=== PATIENT | female | born 1955 | race Caucasian/White ===

== ENCOUNTER → 2016-08-20 | Outpatient (CLI) | payer BC ==
[~2016-08-20] MED LIST: CITA40TA5 PO; CRESTOR10 MG PO; GEMF600T3 PO; NAPR220C4 PO; OMEP20CA9 PO; ZOLP10TA PO
--- NOTE | 2016-08-20 11:28 | KCIC ---
PROCEDURE CT chest without contrast. HISTORY Cough, chills, achiness, sores throat. Smoker's cough. TECHNIQUE Helical CT imaging of the chest is performed without IV contrast. PQRS: One or more the following individualized dose reduction techniques were utilized for the study: 1. Automated exposure control. 2. Adjustment of the mA and/or kV according to patient size. 3. Use of iterative reconstruction technique. COMPARISON CT Calcium score, July 06, 2015. FINDINGS Benign-appearing bilateral axillary lymph nodes. Subcentimeter mediastinal lymph nodes. Limited evaluation of the nicolas without IV contrast. Great vessels are normal caliber. Cardiac size normal, no pericardial effusion. No pleural effusion. The central airways are patent. There is minimal upper lobe centrilobular emphysema. There is a 4 millimeter nodule in the right upper lobe, image 28. Nodular opacity along the right major fissure is stable allowing for respiratory motion artifact on today's exam, image 35. 4 millimeter nodule left upper lobe, image 22. Nodular opacity along the left major fissure is also stable, image 31. Finding is probably an intrapulmonary lymph node. Linear scarring or atelectasis in the inferior lingula is unchanged. There are mild ground-glass opacities in the anterior upper lobes bilaterally. Punctate nonobstructing calculus upper pole of left kidney versus vascular calcification. Degenerative endplate spurring in the thoracic spine. IMPRESSION 1. 4 millimeter noncalcified nodule in the right upper lobe and in the left upper lobe. This area of the lungs not imaged on prior study. Recommend noncontrast CT chest follow up in 12 months to document stability. 2. Probable intrapulmonary lymph nodes bilaterally are stable. 3. Minimal upper lobe centrilobular emphysema. 4. Mild ground-glass opacities in the bilateral anterior upper lobes. Considerations include atelectasis or pneumonitis or alveolar edema. Electronically signed by: Monster Prela MD (Aug 20, 2016 11:27:13)
== END | disposition home or self-care (01) ==
LOC: KCIC CT 10:43
PROVIDERS: ATTEND Nurse Practitioner Family
DX: R05 Cough (principal); R68.83 Chills (without fever); J02.9 Acute pharyngitis, unspecified; J43.2 Centrilobular emphysema; J98.11 Atelectasis; R60.9 Edema, unspecified; R52 Pain, unspecified
CPT/HCPCS: 71250

== ENCOUNTER → 2017-06-23 | Outpatient (CLI) | payer BC ==
--- NOTE | 2017-06-23 16:53 | KCIC ---
Bilateral digital screening mammogram History: Annual screening mammography Comparison: June 17, 2016 and June 04, 2007 Findings: Breast Tissue Density B :There are scattered areas of fibroglandular density. Bilateral digital mammogram images are obtained with CAD. No suspicious masses, architectural distortion, or grouped microcalcifications are identified. Impression: Negative exam. Recommend screening mammogram in one year. BI-RADS Category 1: Negative. PQRS compliance statement - Patient information was entered into a reminder system with a target due date for the next mammogram. Electronically signed by: Desi Thomas MD (06/23/2017 4:50 PM) [id number]
== END | disposition home or self-care (01) ==
LOC: KCIC MAMMO 15:24
PROVIDERS: ATTEND Family Medicine
DX: Z12.31 Encounter for screening mammogram for malignant neoplasm of breast (principal)
CPT/HCPCS: G0202; 77067

== ENCOUNTER → 2017-10-02 | Outpatient (CLI) | payer BC | END | disposition home or self-care (01) | LOC: KCIC 09:30 | DX: R05 Cough (principal); Z87.891 Personal history of nicotine dependence | CPT/HCPCS: 71046 ==

== ENCOUNTER → 2019-04-12 | Outpatient (CLI) | payer BC ==
[~2019-04-12] MED LIST changes: -GEMF600T3 PO; +GEMF600T8 PO; +OMEP20CA10 PO; -OMEP20CA9 PO
--- NOTE | 2019-04-12 17:23 | KCIC ---
EXAM: Bilateral screening mammogram. HISTORY: 63-year-old female presents for screening mammography. TECHNIQUE: Full-field digital craniocaudal and mediolateral oblique views of both breasts are obtained for evaluation. Computer aided detection with [employer] software version 9.3 was applied. COMPARISON: 06/23/2017 and 05/11/2015 and 06/11/2013 BREAST PARENCHYMAL DENSITY: Level B - Scattered fibroglandular densities. FINDINGS: There has been minimal interval increase in a circumscribed nodule within the central aspect of the left breast compared to studies dating to 05/11/2015. The minimal change management coordinator a 4 year interval favors benignity. However, this is significantly increased compared to a study dated 06/11/2013 and there is no evidence of prior sonographic assessment of this lesion there is an additional small circumscribed nodule within the 9:00 position of the right breast which is stable compared to multiple studies. There is no suspicious calcifications or distortion within either breast. IMPRESSION: BI-RADS Category 0: Additional imaging needed. RECOMMENDATION: Further evaluation with a left breast sonogram targeted to a small nodular density within the central breast is recommended to confirm benignity. If your mammogram demonstrates that you have dense breast tissue, which could hide abnormalities, and if you have other risk factors for breast cancer that have been identified, you might benefit from supplemental screening tests that may be suggested by your ordering physician. Dense breast tissue, in and of itself, is a relatively common condition. This information is not provided to cause undue concern, but rather to raise your awareness and to promote discussion with your physician regarding the presence of other risk factors, in addition to dense breast tissue. A report of your mammography results will be sent to you and your physician. You should contact your physician if you have any questions or concerns regarding this report. Mammography is a sensitive method for finding small breast cancers, but it does not detect them all and is not a substitute for careful clinical examination. A negative mammogram does not negate a clinically suspicious finding and should not result in delay in biopsying a clinically suspicious abnormality. PQRS compliance statement - Patient information was entered into a reminder system with a target due date for the next mammogram. "Our facility is accredited by the [employer] Mammography [employer]." Electronically signed by: Ninoska Patel MD (04/12/2019 5:20 PM) [email or web address]
== END | disposition home or self-care (01) ==
LOC: KCIC MAMMO 16:48
PROVIDERS: ATTEND Nurse Practitioner Family
DX: Z12.31 Encounter for screening mammogram for malignant neoplasm of breast (principal)
CPT/HCPCS: 77067

== ENCOUNTER → 2019-04-23 | Outpatient (CLI) | payer OTHER ==
--- NOTE | 2019-04-23 10:45 | KCIC ---
Left breast ultrasound: Reason for examination: Small parenchymal density in the left breast on mammographic screening. Comparison is made to mammographic exam dated 04/12/2019. Left whole breast ultrasound including evaluation of all 4 quadrants and the retroareolar and axillary regions of the left breast was performed. In the 12:00 position 3 cm from the nipple and appearing to correspond to the area of mammographic concern, there is a 6.1 mm hypoechoic benign-appearing fibrocystic type lesion present. No other cystic or solid lesions are seen. No abnormal appearing lymph nodes are seen in the axilla. IMPRESSION: Small fibrocystic lesion 6.1 mm in size at the 12:00 position which would appear to correspond with the area of mammographic concern. No suspicious abnormalities are seen. Recommend 6 month follow-up with ultrasound. BI-RADS Category 3: Probably Benign. "Our facility is accredited by the [employer] Mammography Program." This patient's information has been entered into a reminder system for the patient to be notified with the results of her examination and a target date for the next mammogram. Electronically signed by: Michelle Gaona MD (04/23/2019 10:42 AM) [id number]
== END | disposition home or self-care (01) ==
LOC: KCIC US 09:55
PROVIDERS: ATTEND Obstetrics & Gynecology
DX: N64.89 Other specified disorders of breast (principal)
CPT/HCPCS: 76641